=== PATIENT | male | born 1965 ===

== ENCOUNTER 2018-09-15 16:30 | Inpatient (IN) ==
[~2018-09-15 16:30] MED LIST: EPTIFIBATIDE 75 MG/100 ML BOTTLE IV SCH; HEPARIN/NACL 0.9% 2 UNITS/ML 1,000 ML IV ONE; HEPARIN/NACL 0.9% 2 UNITS/ML 500 ML IV ONE; HYDROmorphone 2 MG/1 ML VIAL ONE; LIDOCAINE 1% 20 ML VIAL ONE; MIDAZOLAM 2 MG/2 ML VIAL ONE; NITROGLYCERIN DRIP 50 MG/250 ML BOTTLE IV ONE; VERAPAMIL 5 MG/2 ML VIAL ONE
[2018-09-15] MEDS ORDERED: EPTIFIBATIDE 20,000 MCG/10 ML VIAL ONE (16:42)
[2018-09-15] MEDS ORDERED: EPTIFIBATIDE 75 MG/100 ML BOTTLE IV ONE (16:42)
[2018-09-15] MEDS ORDERED: TICAGRELOR 90 MG TABLET ONE (17:00)
[2018-09-15] MEDS ORDERED: ACETAMINOPHEN 325 MG TABLET PO PRN (17:27)
[2018-09-15] MEDS ORDERED: ZALEPLON 5 MG CAPSULE PO PRN (17:27)
[2018-09-15] MEDS ORDERED: MAGNESIUM SULF RIDER 2 GM in PREMIX 1 EACH IV PRN (17:27)
[2018-09-15] MEDS ORDERED: ONDANSETRON 4 MG/2 ML VIAL IV PRN (17:27)
[2018-09-15] MEDS ORDERED: MAGNESIUM SULF RIDER 4 GM in PREMIX 1 EACH IV PRN (17:27)
[2018-09-15] MEDS ORDERED: MAGNESIUM SULF RIDER 2 GM in PREMIX 1 EACH IV ONE (17:29)
[2018-09-15] MEDS ORDERED: SODIUM CHLORIDE 0.9% 1,000 ML IV SCH (17:30)
[2018-09-15] MEDS: ROSUVASTATIN 20 MG TABLET PO SCH (21:07)
[2018-09-15] MEDS: ASCORBIC ACID 500 MG TABLET PO SCH (21:07)
[2018-09-15] MEDS: TICAGRELOR 90 MG TABLET PO SCH (21:07)
[2018-09-15] MEDS: CARVEDILOL 3.125 MG TABLET PO SCH (21:07)
[2018-09-15] MEDS: ACETYLCYSTEINE 600 MG CAPSULE PO SCH (21:07)
[2018-09-16 03:46] LABS: Basophils % 0.3 % (0.0-0.8); Eosinophils # 0.1 10*3/uL (0.0-0.87); Eosinophils % 1.1 % (0.00-10.9); Hematocrit 33.4 VOL% (42.0-52.0); Immature Granulocytes % 0.6 %; Immature Granulocytes Absolute 0.07 #; Lymphocytes % 25.4 % (21.2-54.2); Mean Corpuscular HGB Conc 32.9 GM/DL (32-36); Mean Corpuscular Hemoglobin 30 PG (27-34); Mean Platelet Volume 9.9 FL (9.6-12.0); Monocytes % 8.4 % (1.7-12.7); Neutrophils # 7.6 10*3/uL (1.4-7.4); Neutrophils % 64.2 % (38.7-73.9); Platelet Count 238 T/CUMM (130-400); Red Blood Count 3.63 MC/CUMM (3.8-5.5); Red Cell Distribution Width 12.2 % (9.3-17.3); White Blood Count 11.8 T/CUMM (4-12)
[2018-09-16 04:07] LABS: Calcium 7.7 MG/DL (8.5-10.1); Osmolality,Calculated 278.5 MOS/KG (273-304); Potassium 3.9 MMOL/L (3.5-5.1)
[2018-09-16] MEDS: POTASSIUM CHLORIDE 20 MEQ TABLET PO SCH (08:13)
[2018-09-16] MEDS: ASCORBIC ACID 500 MG TABLET PO SCH ×2 (08:13→21:50)
[2018-09-16] MEDS: ACETYLCYSTEINE 600 MG CAPSULE PO SCH ×2 (08:13→21:51)
[2018-09-16] MEDS: TICAGRELOR 90 MG TABLET PO SCH ×2 (08:13→21:50)
[2018-09-16] MEDS: ASPIRIN EC 81 MG TABLET PO SCH (08:13)
[2018-09-16] MEDS: CARVEDILOL 3.125 MG TABLET PO SCH ×2 (08:13→21:50)
[2018-09-16] MEDS: LISINOPRIL 10 MG TABLET PO SCH (12:08)
[2018-09-16] MEDS: ROSUVASTATIN 20 MG TABLET PO SCH (21:53)
[2018-09-17 05:28] LABS: Basophils # 0.1 10*3/uL (0.0-0.2); Basophils % 0.5 % (0.0-0.8); Eosinophils # 0.2 10*3/uL (0.0-0.87); Hematocrit 39.4 VOL% (42.0-52.0); Hemoglobin 12.8 GM/DL (14.0-18.0); Immature Granulocytes % 0.5 %; Immature Granulocytes Absolute 0.06 #; Lymphocytes # 2.6 10*3/uL (1.4-4.0); Lymphocytes % 22.2 % (21.2-54.2); Mean Corpuscular HGB Conc 32.5 GM/DL (32-36); Mean Corpuscular Hemoglobin 30 PG (27-34); Mean Corpuscular Volume 91.6 FL (87-102); Mean Platelet Volume 10.4 FL (9.6-12.0); Monocytes % 8.6 % (1.7-12.7); Neutrophils # 7.8 10*3/uL (1.4-7.4); Neutrophils % 66.2 % (38.7-73.9); Platelet Count 265 T/CUMM (130-400); Red Cell Distribution Width 12.2 % (9.3-17.3); White Blood Count 11.8 T/CUMM (4-12)
[2018-09-17 05:48] LABS: Calcium 8.2 MG/DL (8.5-10.1); Osmolality,Calculated 277.5 MOS/KG (273-304); Potassium 3.7 MMOL/L (3.5-5.1)
[2018-09-17] MEDS: LISINOPRIL 10 MG TABLET PO SCH (08:40)
[2018-09-17] MEDS: ACETYLCYSTEINE 600 MG CAPSULE PO SCH (08:40)
[2018-09-17] MEDS: TICAGRELOR 90 MG TABLET PO SCH (08:40)
[2018-09-17] MEDS: ASCORBIC ACID 500 MG TABLET PO SCH (08:40)
[2018-09-17] MEDS: ASPIRIN EC 81 MG TABLET PO SCH (08:40)
[2018-09-17] MEDS: CARVEDILOL 3.125 MG TABLET PO SCH (08:41)
[2018-09-17] MEDS: POTASSIUM CHLORIDE 20 MEQ TABLET PO SCH (08:41)
[2018-09-17 09:07] VITALS: BP 126/64
== END 2018-09-17 12:38 | disposition home or self-care (01) | DRG 246 ==
LOC: N.CC 17:54 → N.TELEN 09-16 14:02
PROVIDERS: ADMIT Internal Medicine Cardiovascular Disease; ATTEND Internal Medicine Cardiovascular Disease